=== PATIENT | female | born 1945 | race Caucasian/White ===

== ENCOUNTER → 2017-02-01 | Outpatient (CLI) | payer MEDICARE | END | disposition home or self-care (01) | LOC: CFH 11:39 | PROVIDERS: ATTEND Family Medicine | DX: J20.9 Acute bronchitis, unspecified (principal) | CPT/HCPCS: 71020 ==

== ENCOUNTER → 2017-05-03 | Outpatient (CLI) | payer MEDICARE | END | disposition home or self-care (01) | LOC: CFH 13:44 | PROVIDERS: ATTEND Family Medicine | DX: M43.16 Spondylolisthesis, lumbar region (principal); M51.37 Other intervertebral disc degeneration, lumbosacral region | CPT/HCPCS: 72100 ==

== ENCOUNTER → 2019-02-13 | Outpatient (CLI) | payer MEDICARE | END | disposition home or self-care (01) | LOC: CFH 08:51 | PROVIDERS: ATTEND Family Medicine | DX: N63.24 Unspecified lump in the left breast, lower inner quadrant (principal) | CPT/HCPCS: 76642; 77066; G0279 ==

== ENCOUNTER → 2019-02-14 | Outpatient (CLI) | payer MEDICARE ==
[~2019-02-14] MED LIST: LIDOCAINE 1%, 20ML ONE; LIDOCAINE 1%-EPI 1:100K, 20ML ONE; SODIUM BICARBONATE 4.2%, 5ML ONE
== END | disposition home or self-care (01) ==
LOC: CFH 11:58
PROVIDERS: ATTEND Radiology Diagnostic Radiology
DX: N63.24 Unspecified lump in the left breast, lower inner quadrant (principal); C50.312 Malignant neoplasm of lower-inner quadrant of left female breast; Z17.0 Estrogen receptor positive status [ER+]
CPT/HCPCS: 19083; 77065; 88305; J3490; 19285

== ENCOUNTER → 2019-03-14 | Outpatient (CLI) | payer MEDICARE ==
[~2019-03-14] MED LIST changes: +ALPR1TAB2 PO; +CHOL10003 PO; +DIPH25CA61 PO; +IBUP200C8 PO; -LIDOCAINE 1%, 20ML ONE; -LIDOCAINE 1%-EPI 1:100K, 20ML ONE; +LOSA50TA14 PO; +METF500T17 PO; +MULT-658 PO; +OMEP40CA42 PO; +PYRI100T2 PO; -SODIUM BICARBONATE 4.2%, 5ML ONE; +VITA1TAB19 PO; +VITA400C43 PO
[2019-03-14 15:10] LABS: ALANINE AMINOTRANSFERASE 53 U/L (12-78); ALBUMIN 4.2 g/dL (3.4-5.0); ANION GAP 7 mmol/L (5-15); CALCIUM 9.1 mg/dL (8.5-10.1); CHLORIDE 106 mmol/L (98-107); CREATININE 1.47 mg/dL (0.55-1.02)
[2019-03-14 15:12] LABS: ALKALINE PHOSPHATASE 67 U/L (45-117); BILIRUBIN,TOTAL 0.5 mg/dL (0.2-1.0)
== END | disposition home or self-care (01) ==
LOC: STAR 13:18
PROVIDERS: ATTEND Surgery
DX: Z90.13 Acquired absence of bilateral breasts and nipples (principal)
CPT/HCPCS: 36415; 80053; 93005

== ENCOUNTER 2019-03-18 08:03 | Day surgery (SDC) | payer MEDICARE ==
[~2019-03-18] VITALS: Ht 152.4 cm; Wt 50.7 kg
[~2019-03-18 08:03] MED LIST changes: +BUPIVACAINE/PF 0.5% ONE; +EPINEPHRINE 1 MG/ML, 1ML ONE
[2019-03-18 09:31] VITALS: BP 167/87
[2019-03-18] MEDS ORDERED: LACTATED RINGERS 1,000 ML IV SCH (09:31)
[2019-03-18] MEDS ORDERED: PROPOFOL 50 ML ONE (10:08)
[2019-03-18] MEDS ORDERED: FENTANYL PF 250 MCG/5ML ONE (10:09)
[2019-03-18] MEDS ORDERED: MIDAZOLAM 1 MG/ML, 2ML ONE (10:09)
[2019-03-18] MEDS ORDERED: CEFAZOLIN 1,000 MG ONE (10:39)
[2019-03-18] MEDS ORDERED: DEXAMETHASONE 4 MG/ML, 1ML ONE (10:49)
[2019-03-18] MEDS ORDERED: ONDANSETRON 2MG/ML, 2ML ONE (10:49)
[2019-03-18] MEDS ORDERED: PROPOFOL 10 MG/ML, 20ML ONE (10:49)
[2019-03-18] MEDS ORDERED: ONDANSETRON 2MG/ML, 2ML IV PRN (11:00)
[2019-03-18] MEDS ORDERED: ONDANSETRON ODT 8 MG PO PRN (11:00)
[2019-03-18] MEDS ORDERED: ACETAMINOPHEN 325 MG TABLET PO PRN (11:00)
[2019-03-18] MEDS ORDERED: PROMETHAZINE 25 MG/ML, 1ML IV PRN (11:00)
[2019-03-18] MEDS ORDERED: DIPHENHYDRAMINE 50 MG/ML, 1ML IVPush PRN (11:00)
[2019-03-18] MEDS ORDERED: DIAZEPAM 5 MG/ML, 2ML IVPush PRN (11:00)
[2019-03-18] MEDS ORDERED: HYDROmorphone 2 MG/ML, 1ML IVPush PRN (11:00)
[2019-03-18] MEDS ORDERED: OXYcodone 5 MG/5 ML ORAL.SOL UDC PO PRN (11:00)
[2019-03-18] MEDS ORDERED: FENTANYL PF 100 MCG/2ML IV PRN (11:00)
[2019-03-18] MEDS ORDERED: EPHEDRINE 50 MG/ML, 1ML IVPush PRN (11:00)
[2019-03-18] MEDS ORDERED: ISOSULFAN BLUE 10 MG/ML, 5ML IV ONE (11:07)
== END 2019-03-18 13:20 | disposition home or self-care (01) ==
LOC: OUT 08:03 → EDSTATUS 10:30 → OUT 13:20
PROVIDERS: ATTEND Surgery
DX: C50.112 Malignant neoplasm of central portion of left female breast (principal); N60.82 Other benign mammary dysplasias of left breast; E11.40 Type 2 diabetes mellitus with diabetic neuropathy, unspecified; E78.5 Hyperlipidemia, unspecified; I10 Essential (primary) hypertension; K21.9 Gastro-esophageal reflux disease without esophagitis; F41.9 Anxiety disorder, unspecified; M19.90 Unspecified osteoarthritis, unspecified site; Z17.0 Estrogen receptor positive status [ER+]; Z79.84 Long term (current) use of oral hypoglycemic drugs; Z79.899 Other long term (current) drug therapy; Z88.8 Allergy status to other drugs, medicaments and biological substances; Z91.013 Allergy to seafood; Z83.3 Family history of diabetes mellitus; Z82.49 Family history of ischemic heart disease and other diseases of the circulatory system; Z80.0 Family history of malignant neoplasm of digestive organs; Z80.8 Family history of malignant neoplasm of other organs or systems
CPT/HCPCS: 19301; 38525; 38792; 82962; 88307; A9541; J0171; J0690; J1100; J2250; J2405; J2704; J3010; J7120

== ENCOUNTER → 2019-04-11 | Outpatient (CLI) | payer MEDICARE ==
[~2019-04-11] MED LIST changes: -BUPIVACAINE/PF 0.5% ONE; -EPINEPHRINE 1 MG/ML, 1ML ONE
== END | disposition home or self-care (01) ==
LOC: ROC 08:08
PROVIDERS: ATTEND Radiology Radiation Oncology
DX: C50.212 Malignant neoplasm of upper-inner quadrant of left female breast (principal); Z17.0 Estrogen receptor positive status [ER+]
CPT/HCPCS: 99214; G0463

== ENCOUNTER → 2019-04-21 | Outpatient (CLI) | payer MEDICARE ==
[~2019-04-21] MED LIST changes: -PYRI100T2 PO; +PYRI100T9 PO
== END | disposition home or self-care (01) ==
LOC: RAD 10:51
PROVIDERS: ATTEND Family Medicine
DX: R05 Cough (principal); R06.02 Shortness of breath
CPT/HCPCS: 71046